=== PATIENT | male | born 1990 | race African-American/Black ===

== ENCOUNTER 2017-07-11 12:36 | Emergency (ER) | payer SELFPAY ==
[~2017-07-11] VITALS: Ht 175.3 cm; Wt 120.2 kg
[2017-07-11 13:10] LABS: STREPTOCOCCUS GRP A ANTIGEN NEGATIVE (NEGATIVE)
[2017-07-11 13:20] LABS: INFLUENZAE A&B ANTIGEN (RAPID) NEGATIVE (NEGATIVE)
== END 2017-07-11 16:02 | disposition home or self-care (01) ==
LOC: ER 12:36
DX: R11.2 Nausea with vomiting, unspecified (principal); R05 Cough; J02.9 Acute pharyngitis, unspecified; J04.10 Acute tracheitis without obstruction
CPT/HCPCS: 83518; 87070; 87400; 99282

== ENCOUNTER 2018-06-16 12:52 | Emergency (ER) | payer SELFPAY ==
[~2018-06-16] VITALS: Ht 175.3 cm; Wt 111.1 kg
--- OUTSIDE RECORDS SUMMARY | 2018-06-16 12:54 | XMS REPORT ---
Author Author Pau Best Organization [employer] Address Unknown Phone Unavailable Care Team Providers Care Secretary Bookkeeper Name Role Phone Pau Best CP Unavailable Allergies, Adverse Reactions, Alerts Substance Reaction Event Type Aspirin Info Not Available Drug Allergy caffeine,lattex Info Not Available Non Drug Allergy Problems Problem Type Condition Code Onset Dates Condition Status Problem Rash R21 Active Problem Encounter for immunization Z23 Active Problem Exposure to STD Z20.2 Active Assessment Encounter for immunization Z23 Active Assessment Rash R21 Active Medications Medication Code System Code Instructions Start Date End Date Status Dosage Triamcinolone Acetonide [facility] [address]-25 0.5 % Externally Twice a day Oct 26, 2017 Active 1 application to affected area Niacin [facility] [address]-17 Active not defined Results No Known Results Immunizations Vaccine Administration Date Tdap Dec 31, 2017 Summary Purpose [employer] Submission
--- OUTSIDE RECORDS SUMMARY | 2018-06-16 12:54 | XMS REPORT ---
Author Author [facility] Address Unknown Phone Unavailable Care Team Providers Care Statistical Clerk Advertising Name Role Phone Unavailable Unavailable Problems This patient has no known problems. Allergies, Adverse Reactions, Alerts This patient has no known allergies or adverse reactions. Medications This patient has no known medications. Encounters Start Date/Time End Date/Time Encounter Type Admission Type Attending Clinicians [facility] Facility Care Department Encounter ID 2016-12-27 02:52:00 2016-12-27 02:52:00 Emergency [facility] [id number]
--- OUTSIDE RECORDS SUMMARY | 2018-06-16 12:54 | XMS REPORT ---
Author Author Pau Best Organization [employer] Address Unknown Phone Unavailable Care Team Providers Care News Writer Name Role Phone Pau Best Unavailable Allergies No Known Allergies Problems Problem Type Condition Code Onset Dates Condition Status Problem Rash R21 Active Problem Encounter for immunization Z23 Active Problem Exposure to STD Z20.2 Active Assessment Patient left without being seen Z53.21 Active Medications Medication Code System Code Instructions Start Date End Date Status Dosage Niacin [facility] [address]-66 Active not defined Triamcinolone Acetonide [facility] [address]-34 0.5 % Externally Twice a day Oct 26, 2017 Active 1 application to affected area Results No Known Results Summary Purpose [employer] Submission
--- OUTSIDE RECORDS SUMMARY | 2018-06-16 12:54 | XMS REPORT ---
Author Author Shelli Clarke Organization [employer] Address Unknown Phone Unavailable Care Team Providers Care Journeyman Pipefitter Name Role Phone Shelli Clarke CP Unavailable Allergies, Adverse Reactions, Alerts Substance Reaction Event Type Aspirin Info Not Available Drug Allergy caffeine,lattex Info Not Available Non Drug Allergy Problems Problem Type Condition Code Onset Dates Condition Status Problem Rash R21 Active Problem Encounter for immunization Z23 Active Problem Exposure to STD Z20.2 Active Assessment Encounter for immunization Z23 Active Assessment Exposure to STD Z20.2 Active Assessment Rash R21 Active Medications Medication Code System Code Instructions Start Date End Date Status Dosage Triamcinolone Acetonide [facility] [address]-02 0.5 % Externally Twice a day Oct 26, 2017 Active 1 application to affected area Niacin [facility] [address]-78 Active not defined Results No Known Results Summary Purpose [employer] Submission
[2018-06-16] MEDS ORDERED: IPRATROPIUM BROMIDE 0.02% 2.5 ML NEB NEB STA (13:05)
[2018-06-16] MEDS ORDERED: ALBUTEROL SULF 0.083% NEB SOLN 3 ML NEB NEB STA (13:05)
[2018-06-16] MEDS ORDERED: ACETAMINOPHEN/CODEINE ELIX 120-12 MG/5 ML UDC NG ONE (13:15)
[2018-06-16] MEDS ORDERED: KETOROLAC TROMETHAMINE 60 MG/2 ML VIAL IM ONE (13:15)
[2018-06-16] MEDS ORDERED: DEXAMETHASONE SOD PHOS 10 MG/1 ML VIAL IM ONE (13:15)
--- NOTE | 2018-06-16 14:50 | Diagnostic Imaging Report ---
EXAMINATION: PA and lateral views of the chest. COMPARISON: None CLINICAL HISTORY: Dyspnea DISCUSSION: Lines/tubes: None. Lungs: The lungs are well inflated and clear. No pneumonia or pulmonary edema. Pleura: No pleural effusion or pneumothorax. Heart and mediastinum: The cardiomediastinal silhouette is normal. Bones and soft tissues: No acute bony abnormalities. IMPRESSION: No acute cardiopulmonary abnormalities. Signed by: Dr. Glen Chamberlain M.D. on 06/16/2018 2:46 PM
[2018-06-16 17:40] VITALS: BP 158/90
[2018-06-16] MEDS ORDERED: HYDROMORPHONE 2MG/ML 2 MG/ML ML IV ONE (18:30)
[2018-06-16] MEDS ORDERED: ONDANSETRON HCL INJ 2MG/ML 2ML 2 MG/ML VIAL IV ONE (18:30)
== END 2018-06-16 17:10 | disposition home or self-care (01) ==
LOC: ER 12:52
DX: R05 Cough (principal); J20.9 Acute bronchitis, unspecified
CPT/HCPCS: 71046; 99282; J1100; J1885